=== PATIENT | male | born 1935 | race Caucasian/White ===

== ENCOUNTER 2017-09-28 18:58 | Inpatient (IN) | payer MEDICARE ==
[~2017-09-28] VITALS: Ht 165.1 cm; Wt 61.9 kg
--- NOTE | 2017-09-28 19:01 | NUR ---
PT WHEELED STRAIGHT BACK TO ROOM 12 AFTER OBTAINING ACUTAL WEIGHT AND TRIAGED. EKG OBTAINED SHOWING AFIB. PT DENIES KNOWLEDGE OF ARRHYTHMIA
--- NOTE | 2017-09-28 19:26 | NUR ---
PT RESTING. REGISTRATION AT BEDSIDE. TO ROOM.
[2017-09-28 19:44] LABS: HEMATOCRIT 40.9 % (39.0-50.0); HEMOGLOBIN 13.2 g/dl (14.0-18.0); IMMATURE GRANULOCYTES 0.3 % (0.0-5.0); MEAN CELL VOLUME 85.9 fL CALC (80.0-100.0); MEAN CORPUSCULAR HGB 27.7 pG CALC (26.0-32.0); MEAN CORPUSCULAR HGB CONC 32.3 g/L CALC (32.0-36.0); NEUT# 8.04 thou/uL (1.82-7.42); RED BLOOD COUNT 4.76 mill/uL (4.70-6.10)
[2017-09-28 19:45] LABS: ALKALINE PHOSPHATASE 136 u/l (38-126); ANION GAP 15 (6-22 (CALC)); BILIRUBIN, TOTAL 0.6 mg/dL (0.0-1.4); BUN 23 mg/dL (8-23); BUN/CREATININE RATIO 19 (12-20 (CALC)); CARBON DIOXIDE 28 mmol/l (22-30); CHLORIDE 104 mmol/l (95-108); CREATININE 1.2 mg/dL (0.7-1.3); GFR 58 ML/MIN (>=60 (CALC)); GFR FOR AFR.AMER. > 60 ML/MIN (>=60 (CALC)); MAGNESIUM 2.1 mg/dL (1.6-2.3); POTASSIUM 4.5 mmol/l (3.5-5.1); SGPT/ALT 27 u/l (11-66); SODIUM 142 mmol/l (137-146); TOTAL PROTEIN 7.6 g/dL (6.3-8.2)
[2017-09-28 19:47] LABS: SGOT/AST 32 u/l (19-48)
[2017-09-28 19:50] LABS: ACT PARTIAL THROMBO TIME 28.5 SECONDS (20.0-32.5); PROTHROMBIN TIME 11.1 SECONDS (9.0-12.5)
[2017-09-28 19:57] LABS: MYOGLOBIN 56 ng/mL (0 - 121)
--- NOTE | 2017-09-28 20:04 | NUR ---
RETURNED FROM RADIOLOGY
[2017-09-28 20:15] LABS: TSH, 3RD GENERATION 0.98 uIU/mL (0.47 - 4.68)
--- NOTE | 2017-09-28 20:30 | NUR ---
FAMILY WANTED PT CHECKED FOR FACTOR V. ADVISED THAT THAT SORT OF TESTING IN NOW DONE IN AN ER AND WOULD HAVE TO BE ORDERED FROM ATTENDING. VSS. PT RESTING. NO C/O. FEELS BETTER
--- NOTE | 2017-09-28 21:10 | NUR ---
AT BEDSIDE TO DISCUSS RESULTS OF TESTS. ADVISED OF ADMISSION. SON AND AT BEDSIDE. PT REMAINS IN A FIB. ONLY C/O SOME DIZZINESS.
--- NOTE | 2017-09-28 21:17 | NUR ---
SBAR PRINTED TO FLOOR
--- NOTE | 2017-09-28 21:49 | NUR ---
REPORT ATTEMPTED. NURSE WILL CALL BACK
--- NOTE | 2017-09-28 21:54 | NUR ---
Nagi CARVALHO/Yadi CALLED FOR REPORT.
--- NOTE | 2017-09-28 22:59 | NUR ---
Admission Note Report Given to: sbar printed to floor Transported by: Wheelchair x Stretcher Transported with: x Nurse Transporter x Patent IV [id number] x Sql Server Bi Developer
[2017-09-28 23:00] VITALS: BP 137/82
--- NOTE | 2017-09-28 23:00 | NUR ---
PT ARRIVED TO THE FLOOR VIA STRETCHER ACCOMPANIED BY ED NURSE. PT APPEARS TO BE IN STABLE CONDITION AT THIS TIME. V/S ARE BEING ASSESSED AND PT ORIENTED TO ROOM,CALL SYSTEM,LIGHTS, TV AND BED. PT INSTRUCTED TO BE SURE AND CALL FOR FALL PRECAUTIONS IF HE NEEDS TO GET UP DUE TO REPORT OF DIZZINESS.
--- NOTE | 2017-09-28 23:35 | NUR ---
PT ASSESSEMENT COMPLETED. REPORTS SLIGHT DIZZINESS MOSTLY UPON MOVING QUICKLY. POC AND SAFETY MEASURES DISCUSSED WITH PT. LUNG SOUNDS ARE CLEAR, SKIN AND NEURO'S INTACT, STRONG PEDAL PULSES. NO S/S OF DISTRESS, SOB,NAUSEA OR VOMITING AT THIS TIME. PT REMINDED OF CALL LIGHT AND THAT HE NEEDS TO CALL BEFORE GETTING UP. ROOM WARMED AND WARMER BLANKETS ADDED FOR LOW BODY TEMP OF 95.7. WILL REEVALUATE.
--- NOTE | 2017-09-29 00:03 | NUR ---
PT APPEARS TO BE SLEEPING AT THIS TIME. NO S/S OF DISTRESS NOTED. CALL LIGHT AT SIDE AND BED IN LOWEST POSITION.
--- NOTE | 2017-09-29 02:20 | NUR ---
PT.WAS SLEEPING SOUNDLY, BUT AWOKE TO MY VOICE. TEMP REEVALUATED 96.7 AND URINE COLLECTED FOR LAB. 150CC OF DARK YELLOW URINE EMPTIED FROM URINAL.
[2017-09-29 02:54] LABS: URINE BILIRUBIN - DIPSTICK NEGATIVE (NEGATIVE); URINE BLOOD DIPSTICK TRACE-INTACT (NEGATIVE); URINE COLOR YELLOW; URINE GLUCOSE - DIPSTICK NEGATIVE (NEGATIVE); URINE KETONE NEGATIVE (NEGATIVE); URINE LEUK ESTERASE NEGATIVE (NEGATIVE); URINE NITRITE - DIPSTICK NEGATIVE (Negative); URINE PROTEIN - DIPSTICK 30 mg/dL (NEG-TRACE); URINE SPECIFIC GRAVITY 1.025; URINE UROBILINOGEN - DIPSTICK 0.2 E.U./dL (0.2)
[2017-09-29 03:01] LABS: URINE CLARITY SL CLOUDY
[2017-09-29 03:10] LABS: URINE BACTERIA FEW hpf; URINE MUCUS MANY hpf (NONE-FEW); URINE SQUAMOUS EPITHELIAL CELL FEW EPI/hpf (0-FEW)
[2017-09-29 04:19] VITALS: BP 110/69
[2017-09-29 07:43] VITALS: BP 103/66
--- NOTE | 2017-09-29 07:43 | NUR ---
PT RESTING IN BED WATCHING TV, NO SIGNS OF DISTRESS NOTED, RESP EVEN AND UNLABORED. PT ALERT AND ORIENTED X3, PT DOES NOT C/O ANY PAIN OR NEEDS AT THIS TIME. ASSESSMENT COMPLETED, DISCUSSED POC AND PROVIDED TEACHING ON NEW START OF CARDIZEM, PT VERBALIZED UNDERSTANDING AND IN AGREEMENT TO PLAN. VSS, CALL LIGHT IN REACH,CONTINUE TO MONITOR.
[2017-09-29 12:00] VITALS: BP 110/72
--- NOTE | 2017-09-29 12:00 | NUR ---
PT VOICES NO NEEDS OR COMPLAINTS AT THIS TIME, RESP EVEN AND UNLABORED. CALL LIGHT IN REACH,CONTINUE TO MONITOR.
[2017-09-29 16:00] VITALS: BP 109/69
--- NOTE | 2017-09-29 16:18 | NUR ---
DR. HERNANDEZ'S OFFICE WAS CALLED AND LEFT INFORMATION ON THE SCHEDULING VOICE MAIL REGARDING THE PATIENT'S CONSULTATION.
[2017-09-29 19:00] VITALS: BP 120/68
--- NOTE | 2017-09-29 19:55 | NUR ---
PT IS IN BED LOW FOWLERS POSITION WATCHING TV WITH LIGHTS ON. NO S/S OF DISTRESS AT THIS TIME.
--- NOTE | 2017-09-29 23:02 | NUR ---
PT MEDICATED ORDERS PROVIDE AND ASSESSED. DENIES ANY PAIN/N/V/SOB OR DIZZINESS. HE REPORTS LAST DIZZY SPELL WAS THIS MORNING. REPORTS "FEELING MUCH BETTER." NO S/S OF DISTRESS. LUNG SOUNDS ARE CLEAR, ABD SOFT NON-TENDER, NEURO INTACT, NO EDEMA. POC DISCUSSED AND PT ENCOURAGED TO CALL IF ANY NEEDS OF ASSISTANCE ARISE. CALL LIGHT IS W/IN REACH.
[2017-09-30 00:10] VITALS: BP 117/75
[2017-09-30 04:27] VITALS: BP 123/78
--- NOTE | 2017-09-30 04:50 | NUR ---
PT IS SLEEPING SOUNDLY AT THIS TIME. NO S/S OF DISTRESS. CALL LIGHT AT SIDE.
[2017-09-30 07:38] LABS: HEMATOCRIT 40.1 % (39.0-50.0); HEMOGLOBIN 12.9 g/dl (14.0-18.0); MEAN CELL VOLUME 85.3 fL CALC (80.0-100.0); MEAN CORPUSCULAR HGB 27.4 pG CALC (26.0-32.0); MEAN CORPUSCULAR HGB CONC 32.2 g/L CALC (32.0-36.0); RED BLOOD COUNT 4.7 mill/uL (4.70-6.10)
[2017-09-30 08:15] VITALS: BP 124/83
--- NOTE | 2017-09-30 08:15 | NUR ---
ASSESSMENT IS COMPLETED: IV SITE IS FREE FROM REDNESS OR EDEMA. TELE MONITOR IN PLACE. HR IS IRREG, ABD IS SOFT WITH ACTIVE BS, BREATH SOUNDS ARE CLEAR, BILATERALLY. CONTINUE TO OSBERVE AND MONITOR.
[2017-09-30 08:19] LABS: ALBUMIN 3.3 g/dL (3.2-5.0); ALKALINE PHOSPHATASE 110 u/l (38-126); ANION GAP 11 (6-22 (CALC)); BILIRUBIN, TOTAL 0.4 mg/dL (0.0-1.4); BUN 20 mg/dL (8-23); BUN/CREATININE RATIO 16 (12-20 (CALC)); CARBON DIOXIDE 29 mmol/l (22-30); CHLORIDE 102 mmol/l (95-108); CREATININE 1.3 mg/dL (0.7-1.3); GFR 53 ML/MIN (>=60 (CALC)); GFR FOR AFR.AMER. > 60 ML/MIN (>=60 (CALC)); POTASSIUM 4.3 mmol/l (3.5-5.1); SGOT/AST 26 u/l (19-48); SGPT/ALT 23 u/l (11-66); SODIUM 139 mmol/l (137-146); TOTAL PROTEIN 6.5 g/dL (6.3-8.2)
[2017-09-30 09:42] LABS: CHOLESTEROL HDL RATIO 3.6 (<4.4 (CALC))
--- NOTE | 2017-09-30 10:30 | NUR ---
CALL WAS PLACED TO DR. DOWLING PHONE AND INFORMED RE: CONSULTATION. HE WAS UNAWARE MESSAGE WAS LEFT ON HIS OFFICE PHONE OR ANSWERING SERVICE WHEN IT WAS PLACED.
[2017-09-30 11:15] VITALS: BP 125/82
--- NOTE | 2017-09-30 12:32 | NUR ---
PT HAS BEEN AMBULATING IN THE ROOM. IV SITE IS FREE FROM REDNESS OR EDEMA. CONITNUE TO OSBERVE AND MONITOR.
[2017-09-30 15:52] VITALS: BP 121/71
[2017-09-30] MEDS ORDERED: CARDIZEM CD120 M1 PO (18:08)
[2017-09-30] MEDS ORDERED: XARELTO20 MG PO (18:08)
--- NOTE | 2017-09-30 18:49 | NUR ---
PT'S IV SITE DISCONTINUED CATHETER INTACT. NO REDNESS OR EDEMA. DISCHARGE INSTRUCTIONS GIVEN . Discharge instructions given. Patient verbalizes understanding of same. Discharged in stable condition via Wheelchair to Home with family. All belongings sent with pt.
== END 2017-09-30 18:50 | disposition home or self-care (01) | DRG 309 ==
LOC: ED 18:58 → ED-I 19:06 → ED 21:20 → MS2 21:21
PROVIDERS: Family Medicine; Internal Medicine; Nurse Practitioner Family; ADMIT General Practice; ATTEND General Practice
DX: I48.91 Unspecified atrial fibrillation (principal); I67.82 Cerebral ischemia; M19.90 Unspecified osteoarthritis, unspecified site; R54 Age-related physical debility
CPT/HCPCS: J1650

== ENCOUNTER → 2018-04-17 | Outpatient (REF) | payer MEDICARE ==
[~2018-04-17] MED LIST: CARDIZEM CD120 M1 PO; XARELTO20 MG PO
== END | disposition home or self-care (01) ==
LOC: DI 11:40
PROVIDERS: ATTEND Internal Medicine
DX: M25.512 Pain in left shoulder (principal); M19.012 Primary osteoarthritis, left shoulder

== ENCOUNTER 2021-04-04 20:42 | Emergency (ER) | payer MEDICARE ==
[~2021-04-04] VITALS: Ht 165.1 cm; Wt 63.0 kg
[2021-04-04 21:23] LABS: HEMATOCRIT 40.4 % (39.0-50.0); HEMOGLOBIN 12.8 g/dl (14.0-18.0); IMMATURE GRANULOCYTES 0.2 % (0.0-5.0); MEAN CELL VOLUME 89.4 fL CALC (80.0-100.0); MEAN CORPUSCULAR HGB 28.3 pG CALC (26.0-32.0); MEAN CORPUSCULAR HGB CONC 31.7 g/dL CAL (32.0-36.0); NEUT# 6.12 thou/uL (1.82-7.42); RED BLOOD COUNT 4.52 mill/uL (4.70-6.10); RED CELL DISTRI WIDTH 13.4 % (11.5-15.5)
[2021-04-04 21:39] LABS: ACT PARTIAL THROMBO TIME 30.4 SECONDS (20.0-32.5); ALBUMIN 3.9 g/dL (3.2-5.0); ALKALINE PHOSPHATASE 76 u/l (38-126); AMYLASE 174 u/l (30-110); ANION GAP 14 (6-22 (CALC)); BILIRUBIN, TOTAL 0.5 mg/dL (0.0-1.4); BUN 23 mg/dL (8-23); BUN/CREATININE RATIO 19 (12-20 (CALC)); CARBON DIOXIDE 27 mmol/l (22-30); CHLORIDE 104 mmol/l (95-108); CREATININE 1.2 mg/dL (0.7-1.3); ETHYL ALCOHOL 0 mg/dl (0-30); GFR 58 ML/MIN (>=60 (CALC)); GFR FOR AFR.AMER. > 60 ML/MIN (>=60 (CALC)); INTERNATIONAL NORMALIZED RATIO 1.2 RATIO (0.7-1.3); LIPASE 142 u/l (23-300); POTASSIUM 3.9 mmol/l (3.5-5.1); PROTHROMBIN TIME 12.2 SECONDS (9.0-12.5); SGOT/AST 29 u/l (19-48); SODIUM 141 mmol/l (137-146); TOTAL PROTEIN 7.6 g/dL (6.3-8.2)
[2021-04-04 22:33] LABS: URINE BILIRUBIN - DIPSTICK NEGATIVE (NEGATIVE); URINE BLOOD DIPSTICK TRACE-INTACT (NEGATIVE); URINE COLOR YELLOW; URINE GLUCOSE - DIPSTICK NEGATIVE (NEGATIVE); URINE KETONE NEGATIVE (NEGATIVE); URINE LEUK ESTERASE NEGATIVE (NEGATIVE); URINE PH 6.5 (4.5-8.0); URINE PROTEIN - DIPSTICK NEGATIVE (NEG-TRACE); URINE SPECIFIC GRAVITY >=1.030; URINE UROBILINOGEN - DIPSTICK 0.2 E.U./dL (0.2)
[2021-04-04 22:35] LABS: URINE NITRITE - DIPSTICK NEGATIVE (Negative)
[2021-04-04] MEDS ORDERED: ANTIVERT25 M1 PO (22:40)
[2021-04-04] MEDS ORDERED: ZOFRAN4 MG/TAB PO (22:40)
[2021-04-04 22:56] VITALS: BP 144/79
== END 2021-04-04 23:03 | disposition home or self-care (01) ==
LOC: ED 20:42
DX: R42 Dizziness and giddiness (principal); I48.91 Unspecified atrial fibrillation; Z79.01 Long term (current) use of anticoagulants; Z20.822 Contact with and (suspected) exposure to COVID-19
CPT/HCPCS: Q9967